=== PATIENT | male | born 1965 ===

== ENCOUNTER 2018-01-03 15:34 | Emergency (ER) | payer SELFPAY ==
[2018-01-03 15:43] VITALS: BMI 34.9
[2018-01-03 15:45] VITALS: BP 150/78; PULSE 97; RESP 18; TEMP 98.3; O2SAT 97
--- NOTE | 2018-01-03 16:24 | C.PDOC ---
History Of Present Illness 52-YEAR-OLD MALE, PRESENTS TO THE EMERGENCY DEPARTMENT WITH COMPLAINTS OF NEW ONSET L KNEE PAIN SINCE YEST. PAIN WORSE W MOVEMENT. NO TRAUMA. WORSE W STRAIGHTENING LEG. PATIENT IS also co L 1ST TOE PAIN. NO SWELLING. DENIES OTHER ASSOC SX. NO PAIN MEDS TRIED EXAM NAD EXT R KNEE WNL. L KNEE FULL ROM WO DIFF. +REPRODUC PAIN W LEG EXTENSION. + DIFFUSE TEND PATELLA TENDON AREA. MIN SWELLING. NO MEDELLIN TEND. SKIN WNL NO REDNESS. L FOOT LIMTIED ROM 1 MTP. MIN SWELL NEURO INTACT Chief Complaint (Nursing): Lower Extremity Problem/Injury History Per: Patient History/Exam Limitations: no limitations Past Medical History Reviewed: Historical Data, Nursing Documentation, Vital Signs Vital Signs: Last Vital Signs Temp 98.3 F 01/03/18 15:44 Pulse 97 H 01/03/18 15:44 Resp 18 01/03/18 15:44 BP 150/78 01/03/18 15:44 Pulse Ox 97 01/03/18 17:26 Family History: States: No Known Family Hx - Social History Hx Alcohol Use: No Hx Substance Use: No - Immunization History Hx Tetanus Toxoid Vaccination: No Hx Influenza Vaccination: No Hx Pneumococcal Vaccination: No Review Of Systems Constitutional: Negative for: Fever Respiratory: Negative for: Shortness of Breath Gastrointestinal: Negative for: Nausea, Vomiting Musculoskeletal: Positive for: Foot Pain Skin: Negative for: Rash Neurological: Negative for: Weakness, Numbness Physical Exam - Physical Exam Appears: Well, Non-toxic, No Acute Distress Skin: Normal Color, Warm, Dry, No Rash, Other (WNL NO REDNESS.) Extremity: Other ( R KNEE WNL. L KNEE FULL ROM WO DIFF. +REPRODUC PAIN W LEG EXTENSION. +DIFFUSE TEND PATELLA TENDON AREA. MIN SWELLING. NO MEDELLIN TEND. L FOOT LIMTIED ROM 1 MTP. MIN SWELL ) Pulses: Left Dorsalis Pedis: Normal, Right Dorsalis Pedis: Normal Neurological/Psych: Oriented x3, Normal Speech ED Course And Treatment O2 Sat by Pulse Oximetry: 97 Pulse Ox Interpretation: Normal Reevaluation Time: 17:24 Reassessment Condition: Improved Disposition Counseled Patient/Family Regarding: Diagnosis, Need For Followup, Rx Given - Disposition Referrals: [facility] [Outside] [facility] [Outside] Disposition: HOME/ ROUTINE Disposition Time: 17:24 Condition: IMPROVED Prescriptions: Colchicine [Mitigare] 0.6 mg PO ONCE #1 cap Indomethacin [Indocin] 50 mg PO TID PRN #12 cap PRN Reason: Pain, Moderate (4-7) predniSONE [Prednisone] 60 mg PO DAILY #12 tab Instructions: Gout, Lifestyle Changes to Manage Gout, Knee Pain Forms: [facility] (Greek), Work Excuse Print Language: BELIZEAN - Clinical Impression Clinical Impression: Knee pain, Toe pain - Scribe Statement The provider has reviewed the documentation as recorded by the Scribe (Juan Cisneros) All medical record entries made by the Scribe were at my direction and personally dictated by me. I have reviewed the chart and agree that the record accurately reflects my personal performance of the history, physical exam, medical decision making, and the department course for this patient. I have also personally directed, reviewed, and agree with the discharge instructions and disposition.
== END 2018-01-03 17:32 | disposition home or self-care (01) ==
LOC: C.ER 15:34
DX: M25.562 Pain in left knee (principal); M79.675 Pain in left toe(s)